=== PATIENT | male | born 1945 | race Caucasian/White ===

== ENCOUNTER 2017-05-05 08:08 | Emergency (ER) | payer MEDICARE, OTHER ==
[~2017-05-05 08:08] MED LIST: ASPI-630 PO; FURO20TA3 PO; METO25TA4 PO; MULT-208 PO; OLME20TA19 PO; SIMV20TA3 PO; SPIR25TA3 PO; TAMS0.4C2 PO; fish oil
[2017-05-05] MEDS ORDERED: 0.9 % SODIUM CHLORIDE 10 ML DISP.SYRIN. IV PRN (08:30)
--- NOTE | 2017-05-05 08:32 | EKG ---
[address] [address] Test Date: 2017-05-05 Test Time: 08:15:07 Pat Name: SHIV MENDEZ Department: Room: Gender: M Caddie Supervisor: : 1945 Requested By: JOSH BUCIO Order Number: [id number] Reading MD: Measurements Intervals [place] Rate: 61 P: -116 AR: 140 QRS: 38 QRSD: 104 T: 28 QT: 410 QTc: 414 Interpretive Statements SINUS RHYTHM LOW LIMB LEAD VOLTAGE QRS(T) CONTOUR ABNORMALITY CONSIDER ANTEROSEPTAL MYOCARDIAL DAMAGE RI6.01 Unconfirmed report No previous ECG available for comparison
[2017-05-05 08:46] LABS: BASO % 1 % (0-3); EOS # 0.2 x10^3/uL (0.0-0.7); EOS % 4 % (0-3); HEMATOCRIT 42.5 % (39.0-53.0); HEMOGLOBIN 14.4 g/dL (13.0-17.5); LYMPH # 2.1 x10^3/uL (1.0-4.8); LYMPH % 48 % (24-48); MEAN CORPUSCULAR HEMOGLOBIN 32 pg (25-35); MEAN CORPUSCULAR HGB CONC 34 g/dL (31-37); MEAN CORPUSCULAR VOLUME 94 fL (79-100); MONO # 0.6 x10^3/uL (0.0-1.1); MONO % 14 % (0-9); NEUT # 1.4 x10^3uL (1.8-7.7); NEUT % 33 % (31-73); PLATELET COUNT 116 x10^3/uL (140-400); RED BLOOD COUNT 4.55 x10^6/uL (4.30-5.70); RED CELL DISTRIBUTION WIDTH 13.2 % (11.5-14.5); WHITE BLOOD COUNT 4.3 x10^3/uL (4.0-11.0)
--- NOTE | 2017-05-05 08:46 | RAD ---
CT of the head without contrast, 05/05/2017: History: Right-sided facial droop, left-sided visual loss, fall Comparison is made to a study from 12/01/2015. The ventricles are within normal limits in size. There is no shift of the midline structures. There is no evidence of acute intracranial hemorrhage or mass effect. There are lucencies in the posterior and inferomedial aspects of the right cerebellum compatible with old infarcts. These abnormalities were also evident on the previous study. There are unchanged faint deep white matter lucencies bilaterally compatible with chronic ischemic change. IMPRESSION: 1. Old right cerebellar infarct. 2. Minimal deep white matter lucencies compatible with chronic ischemic change. 3. No acute intracranial abnormality is detected. Note: The findings were called to personnel in the [facility] ER at 8:44 AM on 05/05/2017. PQRS Compliance Statement: One or more of the following individualized dose reduction techniques were utilized for this examination: 1. Automated exposure control 2. Adjustment of the mA and/or kV according to patient size 3. Use of iterative reconstruction technique
--- NOTE | 2017-05-05 08:49 | RAD ---
Chest radiograph 05/05/2017 at 0821 hours Indication: Left eye vision loss Comparison: Chest radiograph 12/01/2015 Technique: Single portable frontal upright view of the chest is provided. Findings: Cardiomediastinal silhouette is within normal limits. No pleural effusions, pulmonary vascular congestion or pneumothorax. The lungs are clear. Degenerative changes are noted at the cervicothoracic junction. Impression: No acute cardiopulmonary process.
[2017-05-05] MEDS ORDERED: IV NORMAL SALINE 1,000ML 1,000 ML IV SCH (09:00)
[2017-05-05] MEDS ORDERED: ONDANSETRON PF 4 MG/2 ML VIAL. IV ONE (09:00)
[2017-05-05] MEDS ORDERED: ACETAMINOPHEN 500 MG TABLET PO ONE (09:00)
[2017-05-05 09:04] LABS: ALBUMIN 3.9 g/dL (3.4-5.0); ALBUMIN/GLOBULIN RATIO 1.3 (1.0-1.7); CALCIUM 8.9 mg/dL (8.5-10.1); CREATININE 1.3 mg/dL (0.7-1.3); GFR 54.1; MAGNESIUM 1.9 mg/dL (1.8-2.4); TOTAL BILIRUBIN 0.6 mg/dL (0.2-1.0)
--- NOTE | 2017-05-05 09:21 | PHYS DOC ---
Past History Past Medical History: Diverticulitis, Hypertension, Stroke, Other Past Surgical History: Coronary Bypass Surgery, Knee Replacement, Other Alcohol Use: Heavy Drug Use: None Adult General Chief Complaint Chief Complaint: NEURO SYMPTOMS/DEFICITS HPI HPI patient is a 71 yo male with a history of recent strokes in the emergency department and transferred to [facility] who presents today with sudden onset of dizziness. This morning after he woke up he felt relatively dizzy and lightheaded and while walking to the kitchen began again extreme dizziness with a spinning sensation. He became nauseated sat down quickly when he fell and began to vomit. He also claims that he had loss of vision in the left eye. He also noted some difficulty finding words with memories. Specifically he was very confused about his date of and some of the specifics about his history. Patient denies any chest pain, abdominal pain, fevers, chills, URI symptoms, difficulty speaking. Patient denies any numbness and tingling just increasing weakness in his lower legs and possibly in the right side of his face. She was just seen here recently in our emergency department for similar presentation transfer to our [facility] hospital for MRI and neurology evaluation. He is presently on a daily aspirin. His vision at this point has returned Review of Systems Review of Systems Constitutional: Denies fever or chills [] Eyes: He has had some decreased vision left eye. HENT: Denies nasal congestion or sore throat [] Respiratory: Denies cough or shortness of breath [] Cardiovascular: No additional information not addressed in HPI [] GI: Denies abdominal pain, does describe some intense nausea and vomiting nonbilious nonbloody no bloody stools or diarrhea. : Denies dysuria or hematuria [] Musculoskeletal: Denies back pain or joint pain [] Integument: Denies rash or skin lesions [] Neurologic: Denies headache, has describes some weakness in his lower extremity' s bilaterally Endocrine: Denies polyuria or polydipsia [] Current Medications Current Medications Current Medications Medications (Trade) Dose Ordered Sig/Shari Start Time Stop Time Status Last Admin Dose Admin Sodium Chloride 1,000 ml @ 1,000 mls/hr Q1H 05/05/17 08:25 05/05/17 09:24 UNV Sodium Chloride (Normal Saline Flush) 10 ml QSHIFT PRN 05/05/17 08:30 UNV Allergies Allergies Allergies Coded Allergies Type Severity Reaction Last Updated Verified MUSA Inhibitors Allergy Unknown 12/01/15 Yes Physical Exam Physical Exam Recorded vital signs patient's saturations 99% on room air patient's blood pressure 142/87 patient's heart rate 62 Constitutional: Well developed, well nourished, obviously uncomfortable nontoxic in appearance HENT: Normocephalic, atraumatic, bilateral external ears normal, mucous membranes, no oral exudates, nose normal. [] Eyes: PERRLA, EOMI, conjunctiva normal, no discharge. As a slight nystagmus to the right. Patient visions to visual acuity confrontation at 6 inches is intact both eyes bilaterally [] Neck: Normal range of motion, no tenderness, supple, no stridor. [] Cardiovascular:Heart rate regular rhythm, no murmur [] Lungs & Thorax: Bilateral breath sounds clear to auscultation [] Abdomen: Bowel sounds normal, soft, no tenderness, no masses, no pulsatile masses. [] Skin: Warm, dry, no erythema, no rash. [] Extremities: No tenderness, no cyanosis, no clubbing, ROM intact, no edema. [] Neurologic: Alert and oriented X 3, was a little disoriented to his date of in his age upon arrival but is now oriented. Patient has weakness in his lower extremity's bilaterally 4+ out of 5. Psychologic: Affect normal, judgement normal, mood normal. [] Stroke scale on arrival scored at a 3 1a. Level of consciousness: 0 = Alert; keenly responsive. 1 = Not alert; but arousable by minor stimulation to obey, answer, or respond. 2 = Not alert; requires repeated stimulation to attend, or is obtunded and requires strong or painful stimulation to make movements (not stereotyped). 3 = Responds only with reflex motor or autonomic effects or totally unresponsive , flaccid, and areflexic. 1b. LOC questions: 0 = Answers both questions correctly. 1 = Answers one question correctly. 2 = Answers neither question correctly. 1c. LOC commands: 0 = Performs both tasks correctly. 1 = Performs one task correctly. 2 = Performs neither task correctly. 2. Best gaze: 0 = Normal. 1 = Partial gaze palsy; gaze is abnormal in one or both eyes, but forced deviation or total gaze paresis is not present. 2 = Forced deviation, or total gaze paresis not overcome by the oculocephalic maneuver. 3. Visual: 0 = No visual loss. 1 = Partial hemianopia. 2 = Complete hemianopia. 3 = Bilateral hemianopia (blind including cortical blindness). 4. Facial palsy: 0 = Normal symmetrical movements. 1 = Minor paralysis (flattened nasolabial fold, asymmetry on smiling). 2 = Partial paralysis (total or near-total paralysis of lower face). 3 = Complete paralysis of one or both sides (absence of facial movement in the upper and lower face). 5. Motor arm: 0 = No drift; limb holds 90 (or 45) degrees for full 10 seconds. 1 = Drift; limb holds 90 (or 45) degrees, but drifts down before full 10 seconds ; does not hit bed or other support. 2 = Some effort against gravity; limb cannot get to or maintain (if cued) 90 ( or 45) degrees, drifts down to bed, but has some effort against gravity. 3 = No effort against gravity; limb falls. 4 = No movement. UN = Amputation or joint fusion, explain: 5a. Left arm 5b. Right arm 6. Motor le = No drift; leg holds 30-degree position for full 5 seconds. 1 = Drift; leg falls by the end of the 5-second period but does not hit bed. 2 = Some effort against gravity; leg falls to bed by 5 seconds, but has some effort against gravity. 3 = No effort against gravity; leg falls to bed immediately. 4 = No movement. UN = Amputation or joint fusion, explain: 6a. Left leg 6b. Right leg 7. Limb ataxia: 0 = Absent. 1 = Present in one limb. 2 = Present in two limbs. UN = Amputation or joint fusion 8. Sensory: 0 = Normal; no sensory loss. 1 = Yezk-co-ndtuidby sensory loss; patient feels pinprick is less sharp or is dull on the affected side; or there is a loss of superficial pain with pinprick , but patient is aware of being touched. 2 = Severe to total sensory loss; patient is not aware of being touched in the face, arm, and leg. 9. Best language: 0 = No aphasia; normal. 1 = Faya-tk-ileypdut aphasia; some obvious loss of fluency or facility of comprehension, without significant limitation on ideas expressed or form of expression. Reduction of speech and/or comprehension, however, makes conversation about provided materials difficult or impossible. For example, in conversation about provided materials, examiner can identify picture or naming card content from patient's response. 2 = Severe aphasia; all communication is through fragmentary expression; great need for inference, questioning, and guessing by the listener. Range of information that can be exchanged is limited; listener carries burden of communication. Examiner cannot identify materials provided from patient response. 3 = Mute, global aphasia; no usable speech or auditory comprehension. 10. Dysarthria: 0 = Normal. 1 = Irie-up-anwkjmys dysarthria; patient slurs at least some words and, at worst , can be understood with some difficulty. 2 = Severe dysarthria; patient's speech is so slurred as to be unintelligible in the absence of or out of proportion to any dysphasia, or is mute/anarthric. UN = Intubated or other physical barrier, explain: 11. Extinction and inattention (formerly neglect): 0 = No abnormality. 1 = Visual, tactile, auditory, spatial, or personal inattention or extinction to bilateral simultaneous stimulation in one of the sensory modalities. 2 = Profound maryellen-inattention or extinction to more than one modality; does not recognize own hand or orients to only one side of space. Current Patient Data Lab Results Laboratory Tests Test 05/05/17 08:20 05/05/17 09:07 White Blood Count 4.3 x10^3/uL (4.0-11.0) Red Blood Count 4.55 x10^6/uL (4.30-5.70) Hemoglobin 14.4 g/dL (13.0-17.5) Hematocrit 42.5 % (39.0-53.0) Mean Corpuscular Volume 94 fL (79-100) Mean Corpuscular Hemoglobin 32 pg (25-35) Mean Corpuscular Hemoglobin Concent 34 g/dL (31-37) Red Cell Distribution Width 13.2 % (11.5-14.5) Platelet Count 116 x10^3/uL (140-400) L Neutrophils (%) (Auto) 33 % (31-73) Lymphocytes (%) (Auto) 48 % (24-48) Monocytes (%) (Auto) 14 % (0-9) H Eosinophils (%) (Auto) 4 % (0-3) H Basophils (%) (Auto) 1 % (0-3) Neutrophils # (Auto) 1.4 x10^3uL (1.8-7.7) L Lymphocytes # (Auto) 2.1 x10^3/uL (1.0-4.8) Monocytes # (Auto) 0.6 x10^3/uL (0.0-1.1) Eosinophils # (Auto) 0.2 x10^3/uL (0.0-0.7) Basophils # (Auto) 0.0 x10^3/uL (0.0-0.2) Erythrocyte Sedimentation Rate 5 (0-15) Sodium Level 139 mmol/L (136-145) Potassium Level 4.0 mmol/L (3.5-5.1) Chloride Level 102 mmol/L (98-107) Carbon Dioxide Level 27 mmol/L (21-32) Anion Gap 10 (6-14) Blood Urea Nitrogen 20 mg/dL (8-26) Creatinine 1.3 mg/dL (0.7-1.3) Estimated GFR (Cockcroft-Gault) 54.1 BUN/Creatinine Ratio 15 (6-20) Glucose Level 137 mg/dL (70-99) H Lactic Acid Level 1.4 mmol/L (0.4-2.0) Calcium Level 8.9 mg/dL (8.5-10.1) Magnesium Level 1.9 mg/dL (1.8-2.4) Total Bilirubin 0.6 mg/dL (0.2-1.0) Aspartate Amino Transferase (AST) 30 U/L (15-37) Alanine Aminotransferase (ALT) 51 U/L (16-63) Alkaline Phosphatase 54 U/L (46-116) Troponin I Quantitative < 0.017 ng/mL (0-0.055) QA-Xck-T-Type Natriuretic Peptide 30 pg/mL (0-124) Total Protein 7.0 g/dL (6.4-8.2) Albumin 3.9 g/dL (3.4-5.0) Albumin/Globulin Ratio 1.3 (1.0-1.7) Lipase 156 U/L (73-393) Glucose (Fingerstick) 126 mg/dL (70-99) H Laboratory Tests Test 05/05/17 08:20 05/05/17 09:07 White Blood Count 4.3 x10^3/uL (4.0-11.0) Red Blood Count 4.55 x10^6/uL (4.30-5.70) Hemoglobin 14.4 g/dL (13.0-17.5) Hematocrit 42.5 % (39.0-53.0) Mean Corpuscular Volume 94 fL (79-100) Mean Corpuscular Hemoglobin 32 pg (25-35) Mean Corpuscular Hemoglobin Concent 34 g/dL (31-37) Red Cell Distribution Width 13.2 % (11.5-14.5) Platelet Count 116 x10^3/uL (140-400) L Neutrophils (%) (Auto) 33 % (31-73) Lymphocytes (%) (Auto) 48 % (24-48) Monocytes (%) (Auto) 14 % (0-9) H Eosinophils (%) (Auto) 4 % (0-3) H Basophils (%) (Auto) 1 % (0-3) Neutrophils # (Auto) 1.4 x10^3uL (1.8-7.7) L Lymphocytes # (Auto) 2.1 x10^3/uL (1.0-4.8) Monocytes # (Auto) 0.6 x10^3/uL (0.0-1.1) Eosinophils # (Auto) 0.2 x10^3/uL (0.0-0.7) Basophils # (Auto) 0.0 x10^3/uL (0.0-0.2) Erythrocyte Sedimentation Rate Pending Sodium Level 139 mmol/L (136-145) Potassium Level 4.0 mmol/L (3.5-5.1) Chloride Level 102 mmol/L (98-107) Carbon Dioxide Level 27 mmol/L (21-32) Anion Gap 10 (6-14) Blood Urea Nitrogen 20 mg/dL (8-26) Creatinine 1.3 mg/dL (0.7-1.3) Estimated GFR (Cockcroft-Gault) 54.1 BUN/Creatinine Ratio 15 (6-20) Glucose Level 137 mg/dL (70-99) H Lactic Acid Level 1.4 mmol/L (0.4-2.0) Calcium Level 8.9 mg/dL (8.5-10.1) Magnesium Level 1.9 mg/dL (1.8-2.4) Total Bilirubin 0.6 mg/dL (0.2-1.0) Aspartate Amino Transferase (AST) 30 U/L (15-37) Alanine Aminotransferase (ALT) 51 U/L (16-63) Alkaline Phosphatase 54 U/L (46-116) Troponin I Quantitative < 0.017 ng/mL (0-0.055) RA-Gxy-D-Type Natriuretic Peptide 30 pg/mL (0-124) Total Protein 7.0 g/dL (6.4-8.2) Albumin 3.9 g/dL (3.4-5.0) Albumin/Globulin Ratio 1.3 (1.0-1.7) Lipase 156 U/L (73-393) Glucose (Fingerstick) 126 mg/dL (70-99) H EKG EKG [] EKG time 8:15 AM 2016 demonstrates according to normal sinus rhythm with an EKG heart rate of 61 [place] interval 140 which is normal QRS width of 104 QTC was 414 which is also normal. Patient demonstrates some Q-wave development in V1 and V2 which is likely an old anterior septal infarct there is no ST segment elevation or changes consistent with acute coronary ischemia at this time. Radiology/Procedures Radiology/Procedures [] [address] [address] IMAGING REPORT Signed PATIENT: SHIV MENDEZ ACCOUNT: [id number] : 1945 LOCATION: ER AGE: 71 SEX: M EXAM STATUS: REG ER ORD. PHYSICIAN: JOSH BUCIO MD REASON: stroke PROCEDURE: CT CODE STROKE HEAD WO CT of the head without contrast, 05/05/2017: History: Right-sided facial droop, left-sided visual loss, fall Comparison is made to a study from 12/01/2015. The ventricles are within normal limits in size. There is no shift of the midline structures. There is no evidence of acute intracranial hemorrhage or mass effect. There are lucencies in the posterior and inferomedial aspects of the right cerebellum compatible with old infarcts. These abnormalities were also evident on the previous study. There are unchanged faint deep white matter lucencies bilaterally compatible with chronic ischemic change. IMPRESSION: 1. Old right cerebellar infarct. 2. Minimal deep white matter lucencies compatible with chronic ischemic change. 3. No acute intracranial abnormality is detected. Note: The findings were called to personnel in the [facility] ER at 8:44 AM on 05/05/2017. RS Compliance Statement: One or more of the following individualized dose reduction techniques were utilized for this examination: 1. Automated exposure control 2. Adjustment of the mA and/or kV according to patient size 3. Use of iterative reconstruction technique DICTATED AND SIGNED BY: DOT LAO MD DATE: 05/05/17837 CC: SHAW COTE MD; JOSH BUCIO MD ~ [address] [address] IMAGING REPORT Signed PATIENT: SHIV MENDEZ ACCOUNT: [id number] : 1945 LOCATION: ER AGE: 71 SEX: M EXAM STATUS: REG ER ORD. PHYSICIAN: JOSH BUCIO MD REASON: stroke PROCEDURE: CHEST AP ONLY Chest radiograph 05/05/2017 at 0821 hours Indication: Left eye vision loss Comparison: Chest radiograph 12/01/2015 Technique: Single portable frontal upright view of the chest is provided. Findings: Cardiomediastinal silhouette is within normal limits. No pleural effusions, pulmonary vascular congestion or pneumothorax. The lungs are clear. Degenerative changes are noted at the cervicothoracic junction. Impression: No acute cardiopulmonary process. DICTATED AND SIGNED BY: DIANA SHER MD DATE: 05/05/17844 CC: SHAW COTE MD; JOSH BUCIO MD ~ Course & Med Decision Making Course & Med Decision Making Pertinent Labs and Imaging studies reviewed. (See chart for details) I reviewed patient's nursing notes, vital signs and history and physical considered the following My syncope differential includes but not limited to: Neurally mediated vasovagal syncope, situational syncope, cardiac sinus syncope , orthostatic hypertension, medications, psychiatric interventions, neurologic syncope, cardiogenic syncopal B, to include organic heart disease congestive heart failure, cardiac dysrhythmia, seizure disorder, stroke or transient ischemic attack, bradycardia dysrhythmias, tachycardia dysrhythmias, PT, V. fib V. fib, cardiac abnormalities like first degree secondary third-degree AV blocks , prolonged QT, hypertrophic Dilip myopathy, severe pulmonic stenosis, pulmonary arterial hypertension, atrial myxomas, aortic stenosis, valvular failure, alcohol consumption, adrenal insufficiency, drug effects from things like antidepressants, antihypertensive agents like beta blockers, vasodilators including calcium channel blockers and nitrates, autonomic insufficiency. [] Wide Area Network Systems Administrator note: Spoke with Dr. Neumann Wide Area Network Systems Administrator called at of the service 8:50 am Consult called back at 8:55 Discussed the case I presented and they agreed with admission. He did encourage me to transfer this patient for repeat MRI and neurology evaluation. Wide Area Network Systems Administrator note: spoke with Dr. Nielson 9:10 am Wide Area Network Systems Administrator called at of the service 9:08 am Consult called back at 9:10 am Discussed the case I presented and they agreed with admission. Time of acceptance at 9:10 am Dragon Disclaimer Dragon Disclaimer This chart was dictated in whole or in part using Voice Recognition software in a busy, high-work load, and often noisy Emergency Department environment. It may contain unintended and wholly unrecognized errors or omissions. Departure Departure: Impression: Primary Impression: Dizzinesses Additional Impressions: Stroke Vision disturbance Disposition: XFER [facility] Condition: GUARDED Referrals: SHAW COTE MD (PCP) Problem Qualifiers JOSH BUCIO MD May 05, 2017 09:21
[2017-05-05 09:56] LABS: SEDIMENTATION RATE 5 (0-15)
[2017-05-05 10:05] VITALS: BP 145/80
== END 2017-05-05 10:25 | disposition short-term general hospital (02) ==
LOC: ER 08:08
DX: I63.9 Cerebral infarction, unspecified (principal); H53.8 Other visual disturbances; I10 Essential (primary) hypertension; F10.10 Alcohol abuse, uncomplicated; Z95.1 Presence of aortocoronary bypass graft; Z86.73 Personal history of transient ischemic attack (TIA), and cerebral infarction without residual deficits; Z88.8 Allergy status to other drugs, medicaments and biological substances
CPT/HCPCS: 36415; 70450; 71010; 80053; 82947; 83605; 83690; 83735; 83880; 84443; 84484; 85025; 85651; 93005; 96361; 96374; 99285; J2405; J7030

== ENCOUNTER 2021-10-28 10:03 | Emergency (ER) | payer MEDICARE, OTHER ==
[~2021-10-28] VITALS: Ht 180.3 cm; Wt 115.4 kg
[~2021-10-28 10:03] MED LIST changes: +OLME20TA17 PO; -OLME20TA19 PO; +SIMV20TA18 PO; -SIMV20TA3 PO; -SPIR25TA3 PO; +SPIR25TA5 PO
--- NOTE | 2021-10-28 10:08 | PHYS DOC ---
Past History Past Medical History: CAD, CVA, Diverticulitis, Hypertension, Stroke, Other Past Surgical History: Coronary Bypass Surgery, Knee Replacement, Other Alcohol Use: Heavy Drug Use: None Adult General Chief Complaint Chief Complaint: [facility] Patient is a 76-year-old male presenting via EMS for double vision. Patient lives at home with and reportedly suffered a stroke approximately 48 hours ago without any inciting event, trauma, exposure or known mechanism of injury. Patient has history of stroke and so, reported symptoms of double vision, heada nabila, and gait instability prompted patient and to believe he was suffering from a stroke. Nonetheless, patient did not seek medical attention and has been having ongoing double vision, headache and gait instability ever since without any falls. Patient admits that he has been out of his blood pressure medication prior to symptom onset and when he has checked his blood pressure over past 48 hours has been elevated with systolic readings greater than 180. EMS was subsequently called and on arrival to the house to evaluate patient, found him to have an initial BP of 204/100 and an unstable gait on examination. Decision was made to transfer to our facility at that time. On arrival, patient complaining of dull bandlike headache that is located mostly around his forehead and temporal regions with associated double vision worse in left eye than right. Denies any gross motor or sensory or neuro deficits. Admits he is on numerous medications for various comorbid conditions, cannot disclose his entire medical history and unsure of what medication he takes because "my just gives it to me". Admits only medication he has taken in past 48 hours was x1 dose of Tylenol which did not improve his symptoms Review of Systems Review of Systems Fourteen body systems of review of systems have been reviewed. See HPI for pertinent positives and negative responses, other alexander all other systems are negative, non-pertinent or non-contributory Allergies Allergies Allergies Coded Allergies Type Severity Reaction Last Updated Verified MUSA Inhibitors Allergy Unknown 12/01/15 Yes Physical Exam Physical Exam General: Appears well, obese, in moderate distress due to pain but nontoxic in overall appearance Skin: Warm, dry. Normal for ethnicity. HEENT: Atraumatic. PERRLA. Dry mucous membranes. Poor dentition globally Neck: Trachea midline. Normal ROM. No meningeal signs or nuchal rigidity Respiratory: Normal WOB. CTAB w/o w/r/r. No tachypnea. Cardiovascular: Regular rate and rhythm. Normal peripheral perfusion. No edema. Abdomen: Soft and protuberant. Non tender. No distension. Back: Normal ROM. Musculoskeletal: No swelling or deformity. Neuro: Alert and oriented x 4. MAEE. GCS 15. Normal FNF. Negative pronator drift. Normal heel to larsen. Normal Kev. CN II-XII intact. Normal strength and sensation. Normal speech. Patient reports feeling unstable on feet and holding onto rails and bystanders with attempted ambulation Psych: Normal affect and mood. Current Patient Data Vital Signs Vital Signs Date Time Temp Pulse Resp B/P (MAP) Pulse Ox O2 Delivery O2 Flow Rate FiO2 10/28/21 10:09 98.5 70 16 190/105 (133) 94 Room Air Vital Signs Date Time Temp Pulse Resp B/P (MAP) Pulse Ox O2 Delivery O2 Flow Rate FiO2 10/28/21 10:09 98.5 70 16 190/105 (133) 94 Room Air Lab Results Laboratory Tests Test 10/28/21 10:15 10/28/21 10:33 White Blood Count 7.1 x10^3/uL Red Blood Count 4.67 x10^6/uL Hemoglobin 15.0 g/dL Hematocrit 44.1 % Mean Corpuscular Volume 94 fL Mean Corpuscular Hemoglobin 32 pg Mean Corpuscular Hemoglobin Concent 34 g/dL Red Cell Distribution Width 13.1 % Platelet Count 153 x10^3/uL Neutrophils (%) (Auto) 76 % Lymphocytes (%) (Auto) 15 % Monocytes (%) (Auto) 10 % Eosinophils (%) (Auto) 0 % Basophils (%) (Auto) 0 % Neutrophils # (Auto) 5.3 x10^3uL Lymphocytes # (Auto) 1.0 x10^3/uL Monocytes # (Auto) 0.7 x10^3/uL Eosinophils # (Auto) 0.0 x10^3/uL Basophils # (Auto) 0.0 x10^3/uL Prothrombin Time 11.3 SEC Prothromb Time International Ratio 1.1 Activated Partial Thromboplast Time 22 SEC Sodium Level 137 mmol/L Potassium Level 3.8 mmol/L Chloride Level 99 mmol/L Carbon Dioxide Level 30 mmol/L Anion Gap 8 Blood Urea Nitrogen 20 mg/dL Creatinine 1.1 mg/dL Estimated GFR (Cockcroft-Gault) 64.7 BUN/Creatinine Ratio 18 Glucose Level 123 mg/dL Calcium Level 8.7 mg/dL Total Bilirubin 0.7 mg/dL Aspartate Amino Transf (AST/SGOT) 25 U/L Alanine Aminotransferase (ALT/SGPT) 33 U/L Alkaline Phosphatase 57 U/L Troponin I High Sensitivity 221 ng/L NE-Web-H-Type Natriuretic Peptide 1072 pg/mL Total Protein 6.8 g/dL Albumin 4.0 g/dL Albumin/Globulin Ratio 1.4 Influenza Type A (Rapid) Negative Influenza Type B (Rapid) Negative SARS-CoV-2 Antigen (Rapid) Negative Current Medications Medications (Trade) Dose Ordered Sig/Shari Route PRN Reason Start Time Stop Time Status Last Admin Dose Admin Labetalol HCl (Normodyne) 10 mg 1X ONCE IVP 10/28/21 11:15 10/28/21 11:16 DC 10/28/21 11:15 EKG EKG EKG ordered and interpreted by myself 1020 hrs. as sinus rhythm at 65 bpm, unremarkable intervals, no axis deviation, T wave inversion noted in lead III otherwise no ischemic findings, no STEMI Radiology/Procedures Radiology/Procedures CT HEAD/BRAIN WO Date: 10/28/2021 10:10 AM Clinical Indication: double vision Comparison: 05/05/2017. Technique: 5 mm axial tomographic images were obtained of the head without contrast. These were viewed on brain and bone windows. One or more of the following dose reduction techniques were utilized: Automated exposure control (AEC), Adjustment of mA and/or kV according to patient size, Use of iterative reconstruction technique such as ASiR, CT scan done according to ALARA and image gently/image wisely Findings: Moderate region of valdovinos-white loss in the left inferior cerebellum, PICA distribution. Edema with sulcal effacement and partial effacement of the fourth ventricle Mild generalized cerebral and cerebellar volume loss. Mild nonspecific periventricular hypoattenuation, most commonly seen with chronic small vessel ischemic disease. Calcified atherosclerosis of the bilateral cavernous and paraclinoid internal carotid arteries and intracranial vertebral arteries. No intra- or extra-axial mass or fluid collection. No acute hemorrhage. The ventricles are normal in size, shape, and morphology. The subarachnoid cisterns are patent. The visualized paranasal sinuses are normal. The visualized portions of the orbits and globes are normal. The mastoid air cells are clear. The tree scout topogram shows no lytic lesion or fracture. Impression: 1. Acute to subacute infarct of the left inferior cerebellum, PICA distribution. No acute hemorrhage. Edema with partial effacement of the fourth ventricle. Lateral and third ventricles are not dilated. 2. Mild cerebral volume loss. Mild chronic small vessel ischemic disease. /////////////////////////////// EXAM: Chest, single view. HISTORY: Diplopia. COMPARISON: 05/05/2017 FINDINGS: A frontal view of the chest is obtained. There is no infiltrate, pleural effusion or pneumothorax. There is a stable prominent cardiac silhouette and evidence of prior CABG. There are chronic appearing interstitial changes. IMPRESSION: No acute pulmonary finding. Electronically signed by: Shelley Josue MD (10/28/2021 11:15 AM) [id number] Heart Score C/O Chest Pain: No HEART Score for Chest Pain: HEART Score for Chest Pain Response (Comments) Value History Slighlty/Non-Suspicious 0 ECG Nonspecific Repolarizatio 1 Age > 65 2 Risk Factors >3 Risk Factors or Hx CAD 2 Troponin < Normal Limit 0 Total 5 Risk Factors: Risk Factors: DM, Current or recent (<one month) smoker, HTN, HLP, family history of CAD, obesity. Risk Scores: Risk Factors: DM, Current or recent (<one month) smoker, HTN, HLP, family history of CAD, obesity. Course & Med Decision Making Course & Med Decision Making Airway patent, breathing unlabored, IV access and vitals obtained concerning for marked hypertension only HPI somewhat limited, physical exam concerning for unstable gait with onset ~48 hours prior with associated double vision; otherwise, no gross neurologic deficits noted during physical exam. NIHSS 2 due to difficulty opening left eye from pain only. CT head concerning for acute versus subacute left cerebellar infarct which likely occurred 48 hours prior and causing patient's gait instability. Outside window for TPA, thrombectomy and other invasive measures Patient also acutely hypertensive with consistent systolic BP readings >185 throughout visit today with ongoing headache and signs of endorgan damage (reported double vision with elevated troponin& bnp without EKG changes). 10 mg IV labetalol administered improving BP to <185 systolic present at bedside with patient's medication list. Come to find out, patient has been without home morning metoprolol ER and evening olmesartan blood pressure medications for past 48 hours. Home metoprolol ER restarted also states that patient is on appropriate neurologic meds given prior CVA with most recent being November 2015. He has had issues with GI bleeds due to anticoagulants in the past and so, he is currently on 75 mg Plavix daily in addition to high intensity statin Neurologist at [facility] contacted and case reviewed, agreed no indication for TPA or other emergent measures but joint decision made to transfer patient for further inpatient evaluation such as further diagnostic work-up and PT/OT evaluations for gait instability Hospitalist contacted at [facility] and case reviewed, I disclosed hypertensive urgency with elevated troponin and double vision that improved with administered IV labetalol in addition to gait instability from acute versus subacute cerebellar infarct, patient accepted for transfer I updated patient and at bedside on entirety of ER work-up, all findings, and need for hospital transfer and subsequent admission for further inpatient medical management. They were amenable. All questions and concerns addressed prior to hospital transfer to [facility] Critical Care Time This patient required critical care. Due to the fact that the patient required a significant amount of one on one physician - patient contact time, ordering and review of studies, arranging urgent treatment with development of a management plan, evaluation of patients response to treatment with frequent reassessments, and discussions with other providers this patient required 35 minutes of critical care time. Critical care time was indicated due to the inherent instability and/or potential for instability in this patient. The critical care time that is allocated to this patient is above and beyond any time spent on any other billable procedures performed on this patient. Dragon Disclaimer Dragon Disclaimer This electronic medical record was generated, in whole or in part, using a voice recognition dictation system. NIH Stroke Scale: NIH Stroke Scale Response (Comments) Value Level of Consciousness: 0 Alert/Responsive 0 LOC Questions: 0 Answers both correctly 0 LOC Commands: 0 Performs both tasks 0 Best Gaze: 1 Partial gaze palsy 1 Visual: 0 No visual loss 0 Facial Palsy: 1 Minor paralysis 1 Motor - Left Arm 0 No drift 0 Motor - Right Arm 0 No drift 0 Motor - Left Leg 0 No drift 0 Motor: Right Leg 0 No drift 0 Limb Ataxia: 0 Absent 0 Sensory: 0 No loss 0 Best Language: 0 Normal 0 Dysathria: 0 Normal 0 Extinction and Inattention: 0 Normal 0 Total 2 Departure Departure: Impression: Primary Impression: Cerebrovascular accident (CVA) Additional Impressions: Hypertensive emergency without congestive heart failure Elevated troponin Double vision Hx of CABG Disposition: [facility] ([facility]) Admitting Physician: Other (dr steiner) Condition: STABLE Referrals: SHAW COTE MD (PCP) Problem Qualifiers ROBBIE JOAQUIN DO Oct 28, 2021 10:08
[2021-10-28 10:36] LABS: BASO % 0 % (0-3); EOS % 0 % (0-3); HEMATOCRIT 44.1 % (39.0-53.0); LYMPH % 15 % (24-48); MEAN CORPUSCULAR HEMOGLOBIN 32 pg (25-35); MEAN CORPUSCULAR HGB CONC 34 g/dL (31-37); MEAN CORPUSCULAR VOLUME 94 fL (79-100); MONO # 0.7 x10^3/uL (0.0-1.1); MONO % 10 % (0-9); NEUT # 5.3 x10^3uL (1.8-7.7); NEUT % 76 % (31-73); PLATELET COUNT 153 x10^3/uL (140-400); RED BLOOD COUNT 4.67 x10^6/uL (4.30-5.70); RED CELL DISTRIBUTION WIDTH 13.1 % (11.5-14.5); WHITE BLOOD COUNT 7.1 x10^3/uL (4.0-11.0)
[2021-10-28 10:43] LABS: CALCIUM 8.7 mg/dL (8.5-10.1); CREATININE 1.1 mg/dL (0.7-1.3); GFR 64.7; POTASSIUM 3.8 mmol/L (3.5-5.1)
[2021-10-28 10:48] LABS: ALBUMIN/GLOBULIN RATIO 1.4 (1.0-1.7); TOTAL BILIRUBIN 0.7 mg/dL (0.2-1.0); TOTAL PROTEIN 6.8 g/dL (6.4-8.2)
--- NOTE | 2021-10-28 11:01 | RAD ---
CT HEAD/BRAIN WO Date: 10/28/2021 10:10 AM Clinical Indication: double vision Comparison: 05/05/2017. Technique: 5 mm axial tomographic images were obtained of the head without contrast. These were view ed on brain and bone windows. One or more of the following dose reduction techniques were utilized: A utomated exposure control (AEC), Adjustment of mA and/or kV according to patient size, Use of iterati ve reconstruction technique such as ASiR, CT scan done according to ALARA and image gently/image alexander ly Findings: Moderate region of valdovinos-white loss in the left inferior cerebellum, PICA distribution. Edema with sul evert effacement and partial effacement of the fourth ventricle Mild generalized cerebral and cerebellar volume loss. Mild nonspecific periventricular hypoattenuatio n, most commonly seen with chronic small vessel ischemic disease. Calcified atherosclerosis of the bi lateral cavernous and paraclinoid internal carotid arteries and intracranial vertebral arteries. No intra- or extra-axial mass or fluid collection. No acute hemorrhage. The ventricles are normal in size, shape, and morphology. The subarachnoid cisterns are patent. The visualized paranasal sinuses are normal. The visualized portions of the orbits and globes are no rmal. The mastoid air cells are clear. The pantograph watcher topogram shows no lytic lesion or fracture. Impression: 1. Acute to subacute infarct of the left inferior cerebellum, PICA distribution. No acute hemorrhage. Edema with partial effacement of the fourth ventricle. Lateral and third ventricles are not dilated. 2. Mild cerebral volume loss. Mild chronic small vessel ischemic disease. FOR INTERNAL CODING PURPOSES Critical result: Findings discussed with ROBBIE JOAQUIN DO at 10/28/2021 10:55 AM. RESULT CODE: (C) Electronically signed by: Abdulaziz Abraham MD (10/28/2021 10:59 AM) [id number]
[2021-10-28 11:09] LABS: INFLUENZA A PATIENT NEGATIVE (NEGATIVE); INFLUENZA B PATIENT NEGATIVE (NEGATIVE)
[2021-10-28] MEDS: LABETALOL 20 MG/4 ML DISP.SYRIN. IVP ONE ×2 (11:15→12:25)
--- NOTE | 2021-10-28 11:18 | RAD ---
EXAM: Chest, single view. HISTORY: Diplopia. COMPARISON: 05/05/2017 FINDINGS: A frontal view of the chest is obtained. There is no infiltrate, pleural effusion or pneumo thorax. There is a stable prominent cardiac silhouette and evidence of prior CABG. There are chronic appearing interstitial changes. IMPRESSION: No acute pulmonary finding. Electronically signed by: Shelley Josue MD (10/28/2021 11:15 AM) [id number]
[2021-10-28] MEDS: MORPHINE SULFATE 4 MG/ML DISP.SYRIN. IV ONE (12:37)
[2021-10-28] MEDS ORDERED: ACETAMINOPHEN 500 MG TABLET PO ONE (12:45)
[2021-10-28 13:01] VITALS: BP 185/100
--- NOTE | 2021-10-28 14:08 | EKG ---
[address] [address] Test Date: 2021-10-28 Test Time: 10:16:55 Pat Name: SHIV MENDEZ Department: Room: Gender: M Furniture Maker: : [id number] Requested By: ROBBIE JOAQUIN Order Number: [id number] Reading MD: Chacho Puentes MD Measurements Intervals [place] Rate: 65 P: 34 CO: 180 QRS: 28 QRSD: 104 T: 13 QT: 404 QTc: 421 Interpretive Statements SINUS RHYTHM Electronically Signed On 11-02-2021 9:58:17 JUICE MIXER by Chacho Puentes MD
== END 2021-10-28 13:15 | disposition short-term general hospital (02) ==
LOC: ER 10:03
DX: U07.1 COVID-19 (principal); I63.9 Cerebral infarction, unspecified; I16.1 Hypertensive emergency; R77.8 Other specified abnormalities of plasma proteins; H53.2 Diplopia; I25.810 Atherosclerosis of coronary artery bypass graft(s) without angina pectoris; F10.20 Alcohol dependence, uncomplicated; Y90.9 Presence of alcohol in blood, level not specified
CPT/HCPCS: 36415; 70450; 71045; 80053; 83880; 84484; 85025; 85610; 85730; 87428; 93005; 96374; 96375; 96376; 99291; C9803; J2270; J3490; U0003; 99285-25